=== PATIENT | female | born 1970 | race African-American/Black ===

== ENCOUNTER 2017-01-29 14:26 | Emergency (ER) | payer OTHER ==
[~2017-01-29] VITALS: Ht 162.6 cm; Wt 59.0 kg
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
[2017-01-29] MEDS ORDERED: HYDROCODONE/APAP 5/325MG 1 EACH TABLET PO ONE (15:00)
[2017-01-29] MEDS ORDERED: ONDANSETRON 4 MG TAB.RAPDIS PO ONE (15:00)
[2017-01-29] MEDS ORDERED: ONDANSETRON 4 MG TAB.RAPDIS ONE (15:00)
[2017-01-29] MEDS ORDERED: HYDROCODONE/APAP 5/325MG 1 EACH TABLET ONE (15:00)
[2017-01-29] MEDS ORDERED: TDAP [DIPH/PERTUSSIS/TET] 0.5 ML VIAL IM ONE ×2 (15:00)
--- NOTE | 2017-01-29 15:23 | NUR ---
PT SIGNED WAIVER FORM.
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
--- NOTE | 2017-01-29 15:31 | NUR ---
PT TO CTSCAN AND XRAY
[2017-01-29 17:10] VITALS: BP 118/66
== END 2017-01-29 17:15 | disposition home or self-care (01) ==
LOC: ER 14:28
DX: S80.11XA Contusion of right lower leg, initial encounter (principal); S50.311A Abrasion of right elbow, initial encounter; M25.552 Pain in left hip; M25.551 Pain in right hip; K13.0 Diseases of lips; M24.20 Disorder of ligament, unspecified site; M26.601 Right temporomandibular joint disorder, unspecified; Z85.42 Personal history of malignant neoplasm of other parts of uterus; V03.90XA Pedestrian on foot injured in collision with car, pick-up truck or van, unspecified whether traffic or nontraffic accident, initial encounter; Y93.89 Activity, other specified; Y92.410 Unspecified street and highway as the place of occurrence of the external cause; Y99.8 Other external cause status
CPT/HCPCS: 70450; 70486; 73080; 73521; 73564; 90471; 90715; 99284; A4606; Z7610; Q0162